=== PATIENT | male | born 1995 | race American Indian/Alaskan Native ===

== ENCOUNTER 2019-03-01 19:39 | Emergency (ER) | payer BC, OTHER ==
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
[2019-03-01] MEDS ORDERED: HALDOL IM PRN (20:18)
[2019-03-01] MEDS ORDERED: BENADRYL IM PRN (20:18)
[2019-03-01] MEDS ORDERED: ATIVAN IM PRN (20:18)
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
[2019-03-01 21:14] LABS: BUN/Creatinine Ratio 12; Blood Urea Nitrogen 12 mg/dL (9-20); Calcium 9.1 mg/dL (8.4-10.2); Hemolysis Index 10
[2019-03-01 21:16] LABS: Basophils % (Auto) 0.7 % (0.0-1.8); Eosinophils % (Auto) 0.8 % (0.0-4.3); Lymphocytes # (Auto) 1.4 K/mm3 (1.2-5.4); Lymphocytes % (Auto) 22.4 % (13.4-35.0); Mean Corpuscular HGB Conc 36 % (32-34); Mean Corpuscular Volume 88 fl (84-94); Monocytes # (Auto) 0.5 K/mm3 (0.0-0.8); Monocytes % (Auto) 8.5 % (0.0-7.3); Platelet Count 325 K/mm3 (140-440); Red Blood Count 4.99 M/mm3 (3.65-5.03); Red Cell Distribution Width 12.7 % (13.2-15.2)
[2019-03-01 21:19] LABS: Hemoglobin 15.8 gm/dl (11.8-15.2)
[2019-03-01 21:24] LABS: Free T4 (Free Thyroxine) 1.14 ng/dL (0.76-1.46)
--- NOTE | 2019-03-01 21:34 | Cat Scan Report ---
PROCEDURE: CT HEAD/BRAIN WO CON TECHNIQUE: Computerized tomography of the head was performed without contrast material. CT DOSE LENGTH PRODUCT: 920.5 mGycm HISTORY: AMS- Medical Clearance Psych COMPARISONS: None . FINDINGS: There is no evidence of an acute intracranial process, intracranial hemorrhage or mass effect. The ventricles are normal size. The visualized portions of the orbits, paranasal and mastoid sinuses are unremarkable. The bony structures are unremarkable. IMPRESSION: 1. No evidence of an acute intracranial process, intracranial hemorrhage or mass effect.. This document is electronically signed by Misty Giraldo MD., March 01 2019 09:32:28 PM ET
[2019-03-02 03:54] LABS: Bilirubin,Urine NEG (Negative); Blood,Urine NEG (Negative); Color,Urine Yellow (Yellow); Mucus,Urine FEW /HPF; Protein,Urine <15 mg/dL mg/dL (Negative); Urobilinogen,Urine < 2.0 mg/dL (<2.0)
[2019-03-02 04:03] LABS: Amphetamine Screen,Urine PRESUMPTIVE NEGATIVE; Benzodiazepines Screen,Urine PRESUMPTIVE NEGATIVE; Cannabinoid Screen,Urine PRESUMPTIVE NEGATIVE; Cocaine Screen,Urine PRESUMPTIVE NEGATIVE; Methadone Screen,Urine PRESUMPTIVE NEGATIVE; Opiate Screen,Urine PRESUMPTIVE NEGATIVE
--- NOTE | 2019-03-02 11:34 | Consultation ---
History of Present Illness - Reason for Consult Consult date: 03/02/19 Reason for consult: Mental Health Evaluation Requesting physician: MARLENE PENNY - Chief Complaint Chief complaint: "The voices" - History of Present Psychiatric Illness 23 y.o. AA male who presented to the ER for bizarre behavior. Today the patient was calm, but preoccupied during the assessment. He would not answer questions asked of him, but acknowledged that he was hearing voices currently and for the past few weeks. He appeared that he was responding to some type of stimuli throughout the interview. No gestures of SI/HI's. Per the ER physician's initial note, the patient's behavior have been bizarre and aggressive recently. . Medications and Allergies Allergies Allergy/AdvReac Type Severity Reaction Status Date / Time No Known Allergies Allergy Unverified 03/01/19 19:45 Active Meds: Active Medications Diphenhydramine HCl (Benadryl) 50 mg IM Q6H PRN PRN Reason: Agitation Haloperidol Lactate (Haldol) 10 mg IM Q8H PRN PRN Reason: Agitation Lorazepam (Ativan) 2 mg IM Q8H PRN PRN Reason: Agitation Past psychiatric history - Past Medical History Past Medical History: other (Unable to obtain ) Past Surgical History: Other (Unable to obtain ) - past Psychiatric treatment and history psychiatric treatment history: Denies a psy hx and fam psy hx. Mental Status Exam - Vital signs Last Vital Signs Temp 97.8 F 03/02/19 09:06 Pulse 113 H 03/02/19 09:06 Resp 16 03/02/19 09:06 BP 118/70 03/02/19 09:06 Pulse Ox 100 03/02/19 09:06 - Exam Narrative exam: MSE: Appearance: calm Behavior: regular eye contact Speech: regular rate and tone Mood: preoccupied Affect: congruent to mood Thought Process: unable to assess Thought Content: denies SI/HI's and VH's, possible paranoia Motor Activity: sitting up in bed Cognition: A/O x3 Insight: unable to assess Judgment: unable to assess Results Result Diagrams: 03/01/19 20:27 03/01/19 20:27 Abnormal lab results 03/01/19 03/01/19 03/01/19 Range/Units 20:27 20:27 20:27 Hgb 15.8 H (11.8-15.2) gm/dl MCHC 36 H (32-34) % RDW 12.7 L (13.2-15.2) % [place] % (Auto) 8.5 H (0.0-7.3) % Glucose 129 H (75-100) mg/dL Total Creatine Kinase (55-170) units/L Ur Specific [place] (1.003-1.030) Salicylates < 0.3 L (2.8-20.0) mg/dL Acetaminophen (10.0-30.0) ug/mL 03/01/19 03/01/19 03/02/19 Range/Units 20:27 20:27 03:17 Hgb (11.8-15.2) gm/dl MCHC (32-34) % RDW (13.2-15.2) % [place] % (Auto) (0.0-7.3) % Glucose (75-100) mg/dL Total Creatine Kinase 634 H (55-170) units/L Ur Specific [place] 1.031 H (1.003-1.030) Salicylates (2.8-20.0) mg/dL Acetaminophen < 5.0 L (10.0-30.0) ug/mL All other labs normal. Assessment and Plan Assessment and plan: Impression: Unspecified Psychosis. Today the patient was calm, but preoccupied d uring the assessment. Recommendation/Plan: Continue 1013 and start Zyprexa 5 mg PO HS for psychosis. Attempted to discuss possible metabolic side effects of Zyprexa with the patient. . Dispo: The patient was referred to inpatient psy services. Will staff with Dr Alyssa Gupta.
[2019-03-03] MEDS ORDERED: GEODON IM ONE (08:50)
--- NOTE | 2019-03-03 10:20 | Progress Note ---
Subjective - Reason for Consult Consult date: 03/03/19 Reason for consult: Psychiatry Follow-up - Chief Complaint Chief complaint: "I'm good" 23 y.o. AA male who presented to the ER for bizarre behavior. Today the patient was calm, but still preoccupied during the assessment. He refused to answer questions. Per the MAR, the patient refused Zyprexa last night. No gestures of SI/HI's. Mental Status Exam - Vital signs Last Vital Signs Temp 97.4 F L 03/03/19 09:44 Pulse 62 03/03/19 09:44 Resp 18 03/03/19 09:44 BP 141/79 03/03/19 09:44 Pulse Ox 100 03/03/19 09:44 - Exam Narrative exam: Unable to complete the MSE because the patient refused to cooperate. Assessment and Plan Impression: Unspecified Psychosis. Today the patient was calm, but still preoccupied during the assessment. Recommendation/Plan: Continue 1013 and Zyprexa 5 mg PO HS for psychosis. Attempted to discuss possible metabolic side effects of Zyprexa with the patient. . Dispo: The patient was referred to inpatient psy services. Will staff with Dr Alyssa Gupta.
[2019-03-04] MEDS ORDERED: GEODON IM ONE (11:04)
[2019-03-04 17:16] VITALS: BP 99/67
--- NOTE | 2019-03-04 23:40 | Progress Note ---
Subjective - Reason for Consult Reason for consult: psych consult - Chief Complaint Chief complaint: 23 year old male. Patient continues to pace back and forth in his room. He continues to show disorganized behaviors and is quite impoverished with his responses. Namely, he says "I'm not sure" to majority of my questions. He denies any depression, slept well and claims no issues with his meds. He does seem to be responding to internal stimuli. Mental Status Exam - Vital signs Last Vital Signs Temp 98.3 F 03/04/19 17:09 Pulse 109 H 03/04/19 08:03 Resp 20 03/04/19 17:09 BP 99/67 03/04/19 17:09 Pulse Ox 100 03/04/19 17:09 - Exam Orientation: person Affect: agitated Mood: other ("I'm not sure") Thought content: delusions Thought Process: Thought Blocking, Disorganized Perceptions: hallucinations Speech: paucity Concentration: distractible Motor activity: agitated Level of consciousness: alert Memory: Intact Interaction: apathetic Assessment and Plan Assessment and Plan Impression: Unspecified Psychosis. Recommendation/Plan: Continue 1013 and Zyprexa 5 mg PO HS for psychosis. Dispo: The patient was referred to inpatient psych services.
== END 2019-03-04 18:13 ==
LOC: EEVIPCON 19:39 → ED 19:39
DX: F23 Brief psychotic disorder (principal); Z87.891 Personal history of nicotine dependence
CPT/HCPCS: 36415; 70450; 80048; 80307; 81001; 82550; 84439; 84443; 85025; 93005; 93010; 96372; 99285; G0480; J3486; 80320